=== PATIENT | female | born 1995 | race Caucasian/White ===

== ENCOUNTER 2023-04-04 20:02 | Emergency (ER) | payer BC ==
[~2023-04-04] VITALS: Ht 170 cm; Wt 90.1 kg
[~2023-04-04 20:02] MED LIST: HYDR1TAB PO
--- NOTE | 2023-04-04 20:21 | ED EENT ---
History of Present Illness General Chief Complaint: General Problems/Pain Stated Complaint: NOSE BLEED WON'T STOP Source: patient Exam Limitations: no limitations History of Present Illness Date Seen by Provider: Apr 04, 2023 Time Seen by Provider: 20:16 Initial Comments Patient is a 27-year-old female with a history of depression who presents to the emergency department with a chief complaint of nosebleed. She states that she has felt congested, blew her nose approximately an hour ago and had onset of bleeding. Had similar episode in 2017. Has never had any nasal surgeries. Is not on any blood thinners. Was diagnosed with COVID last . Was at work today when symptoms started. Currently has had a nasal clamp in place for about 5 minutes. Is not nauseated. Appears very anxious. Timing/Duration: abrupt Severity: moderate Location: nose Prearrival Treatment: no prearrival treatment Associated Symptoms: cough, other (Congestion, 5 days ago diagnosed with COVID) Allergies and Home Medications Allergies Coded Allergies: No Known Drug Allergies (Unverified , 04/04/23) Patient Home Medication List Home Medication List Reviewed: Yes Hydrocodone Bit/Acetaminophen (Vicodin 5-500 Tablet) 1 Each Tablet, 1 EACH PO Q4HR PRN Prescribed by: HERSON LAUGHLIN DO on 11/28/09 Review of Systems Review of Systems Constitutional: see HPI Eyes: No Symptoms Reported Ears: No Symptoms Reported Nose: congestion, epistaxis Mouth: no symptoms reported Throat: no symptoms reported Respiratory: cough Cardiovascular: no symptoms reported Gastrointestinal: no symptoms reported Musculoskeletal: no symptoms reported Physical Exam Vital Signs Vital Signs - First Documented 04/04/23 20:13 Temp 36.7 Pulse 85 Resp 20 B/P (MAP) 141/81 (101) Pulse Ox 95 O2 Delivery Room Air Height, Weight, BMI Height: '" Weight: lbs. oz. kg; BMI Method: General Appearance: WD/WN, mild distress (Anxious) Eyes: bilateral eye normal inspection, bilateral eye PERRL, bilateral eye EOMI Ears: bilateral ear auricle normal Mouth/Throat: normal mouth inspection, other (Scant blood noted in the po sterior pharynx) Neck: full range of motion Respiratory: no respiratory distress, no accessory muscle use Neurologic/Psychiatric: alert, other (Anxious) Skin: normal color, warm/dry Progress/Results/Core Measures Results/Orders My Orders Orders - KEMI MOREJON MD Ondansetron Oral Dissolve Tab (Ondanset (04/04/23 20:22) Oxymetazoline 0.05% Nasal [place] (Oxymetaz (04/04/23 21:28) Vital Signs/I&O 04/04/23 20:13 Temp 36.7 Pulse 85 Resp 20 B/P (MAP) 141/81 (101) Pulse Ox 95 O2 Delivery Room Air Progress Progress Note #1: Time: 20:46 Progress Note Patient seen and evaluated by me, evaluation today includes history and physical exam. Pertinent physical exam findings well-developed well-nourished female anxious due to nosebleed. She has a nasal clamp in place that was applied approximately 5 minutes before my evaluation. Vital signs are stable. Heart is regular, lungs are clear without any respiratory distress. She has scant blood in the posterior pharynx without any significant bleeding noted. Elected to leave the clamp in place for another 15 minutes or so and monitor. Differential diagnosis includes anterior epistaxis versus posterior epistaxis After the clamp was removed at this time, patient appears to have no active bleeding. Both nares were examined, it seems that she was bleeding more from the left than the right nare. She does not have any large clots in the nare. Posterior pharynx reexamined, no active bleeding is noted. Will continue to monitor now that the clamp is off. She was given 8 mg of ODT Zofran for some nausea. Progress Note #2: Time: 21:36 Progress Note Patient reevaluated after nasal clamp was removed. She has a little bit of blood accumulation at the left nare. No active bleeding/dripping. No blood in the posterior pharynx. Will give her a dose of Afrin in the left nare. Her vital signs remained stable. She is feeling better. Recommended the saline gel Q-tips that she can obtain at the local pharmacy to help keep nasal mucosa moist. Instructed her on compression of the nasal bridge if bleeding should restart. She verbalized understanding of the plan of care. No concern for ongoing posterior bleed. All questions are sought and answered. Patient is improved at discharge. Departure Impression Primary Impression: Anterior epistaxis Disposition: 01 HOME, SELF-CARE Condition: Improved Departure-Patient Inst. Decision time for Depature: 21:37 Referrals: [facility] (PCP/Family) Primary Care Physician Patient Instructions: Nosebleeds (DC) Add. Discharge Instructions: Use a coolmist humidifier in your room at night when sleeping. You can get [id number] nasal saline gel Q-tips to help keep your nose tissues moist. Please follow packaging instructions. Try not to blow your nose for the next 24 hours. If bleeding reoccurs, apply compression for 5 to 10 minutes as instructed here in the emergency department. You can also apply an ice pack to the back of your neck. This may help to constrict blood vessels. If after 10 to 15 minutes bleeding has not lessened or improved, please return to the emergency room for reevaluation. Please follow-up with your primary care provider for further evaluation and management. Copy Copies To 1: GEETHA ROBERSON KATHRYN M MD Apr 04, 2023 20:21
[2023-04-04] MEDS ORDERED: ONDANSETRON 4 MG ORAL DISSOLVE TABLET PO STA (20:22)
[2023-04-04] MEDS ORDERED: OXYMETAZOLINE 0.05% NASAL SPRAY 30 ML BTL STA (21:28)
[2023-04-04 21:41] VITALS: BP 122/74
== END 2023-04-04 21:42 | disposition home or self-care (01) ==
LOC: EDUNIT# 20:02 → ER 20:06
DX: R04.0 Epistaxis (principal); U07.1 COVID-19; R05.9 Cough, unspecified; R09.81 Nasal congestion; R11.0 Nausea
CPT/HCPCS: 99283